=== PATIENT | male | born 1940 | race Caucasian/White ===

== ENCOUNTER 2022-11-15 08:51 | Inpatient (IN) ==
--- NOTE | 2022-10-26 14:33 | PAT Medication Instructions ---
Medication Instructions Date of Service October 26, 2022 Home Medications atorvastatin 40 mg tablet 40 mg PO QPM metformin 500 mg tablet,extended release 24hr 1,000 mg PO BID aspirin 81 mg tablet 81 mg PO QAM clopidogrel 75 mg tablet (Plavix) 75 mg PO QAM lisinopril 20 mg-hydrochlorothiazide 12.5 mg tablet 1 tab PO QAM loratadine 10 mg tablet (Claritin) 10 mg PO DAILY PRN Allergy Symptoms multivitamin 1 tab PO QAM ASK your prescriber and surgeon aspirin 81 mg tablet 81 mg PO QAM clopidogrel 75 mg tablet (Plavix) 75 mg PO QAM DO NOT take the morning of surgery metformin 500 mg tablet,extended release 24hr 1,000 mg PO BID lisinopril 20 mg-hydrochlorothiazide 12.5 mg tablet 1 tab PO QAM loratadine 10 mg tablet (Claritin) 10 mg PO DAILY PRN Allergy Symptoms multivitamin 1 tab PO QAM Take evening before surgery atorvastatin 40 mg tablet 40 mg PO QPM metformin 500 mg tablet,extended release 24hr 1,000 mg PO BID loratadine 10 mg tablet (Claritin) 10 mg PO DAILY PRN Allergy Symptoms (if needed) OTHERWISE NOTHING TO EAT OR DRINK AFTER MIDNIGHT Other Notes If you have any questions please call us at [phone] or [phone] or [phone] or [phone]
--- NOTE | 2022-11-02 09:09 | Anesthesiology Consultation ---
Date of Service November 02, 2022 Assessment & Plan (1) Encounter for pre-operative examination: - Check BSG AM DOS - COVID screening: Per assessment on 11/02: No known COVID-19 positive contacts or current COVID-19 related symptoms. Travel screen negative. Patient vaccinated. At surgeon discretion if preop Covid testing being done. - Plavix/ASA instructions: Per surgeon/prescriber (per patient, advised by surgeon to continue perioperatively) Chart Review Chart Review: Acceptable Risk for Surgery (pending evaluation AM DOS) and Patient seen in Pre Admission Testing Teaching & Discussion Pre-Anesthesia Teaching/Discussion Notes: Instructed NPO after midnight before surgery,except medications with 15 cc of water. Medication instructions provided according to the PAT guidelines. History Surgery Operation Date: 11/15/22 09:50 Proposed Procedures p Left Transcarotid Artery Revascularization - Cuate Cuba MD Height/Weight Height: 5 ft 10 in Weight: 85.9 kg Allergies Allergy/AdvReac Type Severity Reaction Status Date / Time No Known Allergies Allergy Verified 10/26/22 08:45 Medications Home Medications Medication Instructions Recorded Confirmed Last Taken atorvastatin 40 mg tablet 40 mg PO QPM 03/13/22 10/26/22 Unknown metformin 500 mg tablet,extended 1,000 mg PO BID 03/13/22 10/26/22 Unknown release 24hr aspirin 81 mg tablet 81 mg PO QAM 10/26/22 10/26/22 Unknown clopidogrel 75 mg tablet (Plavix) 75 mg PO QAM 10/26/22 10/26/22 Unknown lisinopril 20 1 tab PO QAM 10/26/22 10/26/22 Unknown mg-hydrochlorothiazide 12.5 mg tablet loratadine 10 mg tablet (Claritin) 10 mg PO DAILY PRN Allergy Symptoms 10/26/22 10/26/22 Unknown multivitamin 1 tab PO QAM 10/26/22 10/26/22 Unknown Past Medical History Medical History Carotid artery stenosis Diabetes History of prostate cancer 2001- radiation seed implant History of shingles History of skin cancer HTN (hypertension) Hyperlipidemia Snoring Evaluated by sleep medicine, possible disordered breathing, sleep study discussed/not done Exercise / Class Metabolic Activity II 4-5 Yardwork/Stairs/Walk up hill Past Family History Family History Father Prostate cancer Past Surgical History Surgical History Hx of colonoscopy Hx of hernia repair Hx of removal of cyst lipoma from neck Status post Mohs surgery 2008, 2010, 2020 Past Anesthesia History No Hx of Anesthesia Complications and No Family Hx of Anesthesia Complications History of PONV No Hx of PONV and No Hx of Motion Sickness Social History Smoking Status: Former smoker tobacco type: cigars Smoking cigarettes per day: Quit 1984 Do You Dip or Chew Tobacco: No Hx Alcohol Use: Yes Alcohol type: beer alcohol intake frequency: a few times a week Hx Substance Use: No substance use type: does not use Review of Systems Patient denies chest pain, shortness of breath, dyspnea on exertion, fever, chills, cough, wheezing, palpitations. Physical Exam Vital Signs VITALS BP 184/77 (BP monitored closely, recent systolic readings in the 120s-140s per patient) P 66 TEMP 98.4 SP02 98%RA RESP 18 PHYSICAL Full cervical extension range of motion. Full TMJ range of motion. TMD 3 finger breaths Mallampati Score 2 Dentition: partial upper/lower Lungs: clear throughout to auscultation Cardiac: regular rate and rhythm, no murmurs noted Spine: normal Carotid arteries: negative bruit Extremities: no LE edema Lab Results Anesthesia Preop Results Results Anesthesia Widget: WBC 6.08 K/ul (4.8-10.8) 10/30/22 Hgb 14.7 g/dl (14.0-18.0) 10/30/22 Hct 43.2 % (42.0-52.0) 10/30/22 Plt 235 K/uL (130-400) 10/30/22 Na 140 mmol/L (136-145) 10/30/22 K 4.5 mmol/L (3.5-5.1) 10/30/22 Cl 99 mmol/L (98-107) 10/30/22 CO2 31 mmol/L (21-32) 10/30/22 BUN 20 mg/dl (6-23) 10/30/22 Creat 0.94 mg/dl (0.6-1.4) 10/30/22 Glucose Level 149 mg/dl (70-99(Fasting)) H 10/30/22 PT 11.5 Seconds (9.0-12.0) 10/30/22 PTT 26.7 Seconds (21.0-31.0) 11/02/22 INR 1.1 (0.9-1.1) 10/30/22 HA1c 6.9 % (4.5-5.6) H 11/02/22 Blood Type A Positive 11/02/22 Antibody Screen NEGATIVE 11/02/22 Testing Electrocardiogram Date: 11/02/22 NSR at 64bpm. RBBB. LAFB. *Bifascicular block* No comparison EKGs available. Case/EKG reviewed with Dr. Miranda- he does not feel that further cardiac evaluation and/or testing needed prior to given surgery from his perspective Chest X-Ray Date: 11/02/22 FINDINGS: The lungs are clear. Cardiac silhouette is normal in size. No pleural effusions. No pneumothorax. Calcifications within the aortic knob. Small surgical clip at the left lung base. IMPRESSION: No acute process. Other Testing Neck CTA (10/20/22) There is critical stenosis versus focal occlusion at the takeoff of the left internal carotid artery with only a trickle of flow identified at this location. The remaining cervical and intracranial left internal carotid artery is diffusely small in caliber/narrowed throughout its course. This could be due to retrograde flow of contrast, chronic high-grade stenosis, or possibly a chronic dissection. COVID-19 Risk Screen Screening Information COVID-19 Screen Date: 11/02/22 Exposure 21 Days Family/Household +COVID Last 21 Days: No Exposure 10 Days Any COVID Exposure Last 10 Days: No Symptoms Last 10 Days Experienced COVID Sx Last 10 Days: No + COVID 0-90 Days COVID + in Last 0-90 Days: No
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
[~2022-11-15 08:51] MED LIST: LACTATED RINGER'S 1,000 ML IV SCH; ceFAZolin 2000MG 2,000 MG/15 ML SYR IV SCH
[2022-11-15] MEDS ORDERED: HEPARIN SOD (PORCINE) 1000 UNIT/ML ONE (09:16)
[2022-11-15] MEDS ORDERED: fentaNYL citrate PF 100 MCG/2 ML VIAL ONE ×2 (09:16→11:21)
[2022-11-15] MEDS ORDERED: PHENYLEPHRINE HCL 25 MG/250 ML NSS IV ONE (09:16)
[2022-11-15] MEDS ORDERED: ROCURONIUM BROMIDE 10 MG/ML 5 ML VIAL IV ONE (09:16)
[2022-11-15] MEDS ORDERED: DEXAMETHASONE SOD INJ 4 MG/ML VIAL ONE (09:16)
[2022-11-15] MEDS ORDERED: PROPOFOL IV EMULSION 10 MG/ML 20 ML VIAL IV ONE (09:16)
[2022-11-15] MEDS ORDERED: GLYCOPYRROLATE 0.2 MG/ML VIAL ONE (09:54)
[2022-11-15] MEDS ORDERED: GELATIN SPONGE SZ 100 ONE (10:08)
[2022-11-15] MEDS ORDERED: ceFAZolin 330 MG/ML 1 GM VIAL ONE (10:08)
[2022-11-15] MEDS ORDERED: BUPIVACAINE/EPINEPHRINE 0.5% MPF 1:200,000 30 ML VIAL ONE (10:08)
[2022-11-15] MEDS ORDERED: THROMBIN FOR SOLN 20000 UNIT KIT ONE (10:09)
--- NOTE | 2022-11-15 10:32 | History & Physical Bridge Note ---
Date of Service November 15, 2022 History & Physical Bridge Note I have examined the patient, reviewed the History & Physical and in the interval since the performance of the History & Physical I have noted the following changes of clinical significance: no changes noted
[2022-11-15] MEDS ORDERED: LABETALOL HCL IV 5 MG/ML 20ML IV ONE (11:22)
[2022-11-15] MEDS ORDERED: ONDANSETRON INJ 2 MG/ML 2 ML VIAL ONE (11:23)
[2022-11-15] MEDS ORDERED: SUGAMMADEX SODIUM 200 MG/2 ML VIAL IV ONE (11:24)
[2022-11-15] MEDS ORDERED: PROTAMINE SULFATE 10 MG/ML 5 ML VIAL IV ONE (11:52)
[2022-11-15] MEDS ORDERED: PHENYLEPHRINE HCL 10 MG/ML VIAL ONE (12:00)
[2022-11-15] MEDS ORDERED: ePHEDrine sulfate 50 MG/ML AMP ONE (12:00)
[2022-11-15] MEDS ORDERED: SURGICEL ABSORB HEMOSTAT 2IN X 14IN TOP ONE (12:08)
[2022-11-15] MEDS ORDERED: ARISTA ABSORBABLE HEMOSTAT 3GM TOP ONE (12:09)
[2022-11-15] MEDS ORDERED: NALOXONE HCL 0.4 MG/1 ML VIAL/CARP IV PRN (12:17)
[2022-11-15] MEDS ORDERED: ATROPINE SULFATE 0.1 MG/ML 10ML SYR IV PRN (12:17)
[2022-11-15] MEDS ORDERED: ePHEDrine sulfate 50 MG/ML AMP IV PRN (12:17)
[2022-11-15] MEDS ORDERED: fentaNYL citrate PF 100 MCG/2 ML VIAL IV PRN (12:17)
[2022-11-15] MEDS ORDERED: LABETALOL HCL IV 5 MG/ML 20ML IV PRN (12:17)
[2022-11-15] MEDS ORDERED: ONDANSETRON INJ 2 MG/ML 2 ML VIAL IV PRN (12:17)
[2022-11-15] MEDS ORDERED: FLUMAZENIL 0.1 MG/1 ML 10 ML VIAL IV PRN (12:17)
[2022-11-15] MEDS ORDERED: PROMETHAZINE HCL 12.5 MG in SODIUM CHLORIDE 0.9% 50 ML IV PRN (12:17)
--- NOTE | 2022-11-15 12:29 | Procedure Note ---
Angiogram Post Procedure Fluoroscopy Time (minutes): 3.4 Radiation (mGy): 45 Contrast: 15 Post Operative Report Pre & Post Diagnosis Operation Date: 11/15/22 10:50 Pre-Op Diagnosis: Left Internal Carotid Artery Stenosis Post-Op Diagnosis: Left Internal Carotid Artery Stenosis I identified the patient and participated in the time-out.: Yes Procedure Operation Date: 11/15/22 10:50 Actual Procedures p Left Transcarotid Artery Revascularization, Ultrasound of the Right Common Femoral Vein(Left) - Cuate Cuba MD Surgeon Cuate Cuba MD Inspector Hairspring Truing Nathalie,PAC Estimated Blood Loss 30 Findings Consistent with Post-Op Diagnosis Specimens none Anesthesia Type General Complications none Disposition Accompanied Patient To Recovery: No Disposition: Recovery Room Indications This is a 82-year-old male with preocclusive stenosis of his left internal carotid artery. Endarterectomy versus TCAR was recommended. We went over the risks options and benefits and he agreed to go ahead with a TCAR procedure. I have discussed the risks options and benefits of the procedure with the patient. The patient understands the risks options and benefits and agrees to the procedure. Description of Procedure The patient was taken to the operating room and placed in supine position. After general anesthesia was accomplished the groins and left side of the neck and chest were prepped and draped in a sterile manner. Timeout was performed and the patient was identified. A transverse incision was made just above the clavicle between the heads of the sternocleidomastoid. This was carried down to where the common carotid artery was identified. It was isolated and slung with an umbilical tape. U stitch of 5-0 Prolene was placed on the common carotid artery anteriorly. It was given 9000units of heparin at that time. Ultrasound was then used to localize the right common femoral vein. The vein was patent and compressed easily. Under ultrasound guidance the right common femoral vein was punctured and the venous sheath was inserted. This was aspirated and flushed with heparinized saline. An ACT at that time was 275. Using micropuncture technique the common carotid artery was punctured. The micro sheath was inserted to 3 cm. Injection was then done showing the bifurcation. There was a significant preocclusive lesion seen at the origin of the internal carotid artery on the right side. We then inserted the J-wire and kept it short of the bifurcation of the carotid artery. The TCAR sheath was inserted. Once it was in place and held against the artery it was sutured to the chest wall and the incision edge. We then flushed the tubing appropriately. The venous return tubing was clamped onto the TCAR sheath. It was flushed through and then attached to the venous inflow sheath in the left groin. The sheath was checked for flow. The proximal common carotid was now clamped. The venous sheath was again checked for flow. Good flow was noted. We then inserted a Kumpe catheter backloaded on the 014 wire. The wire was passed through the lesion into the petrous portion of the internal carotid. The 4 x 35 balloon was then advanced to the lesion. The lesion was then predilated with the 4 mm balloon. The balloon was removed. We then inserted the 8 x 40 stent. This was deployed across the lesion without difficulty. The catheter was removed. Due to the significant narrowing we decided to post dilate the stent with a 5 x 40 balloon. Once this was done the balloon was removed. The carotid was allowed to go 2 minutes with flow reversal. Completion angiogram was done at that time which showed a mild residual stenosis. Again after the angio was done and the wire was removed we allowed 2 minutes of flow reversal to occur. A that point the common carotid artery was unclamped. The venous return tubing was clamped and removed from the TCAR sheath. The blood was allowed to flow back into the venous system. Once this was completed the sheath was pulled from the groin and pressure was applied. The TCAR sheath was then removed and the 5-0 Prolene suture securely tied. Hemostasis was noted of the puncture site. Wound was irrigated with Ancef solution. Adequate hemostasis was obtained of the wound. Once this was noted the wound was closed in usual fashion using a 3-0 Vicryl suture for the subcutaneous layer and a 4-0 subcuticular Vicryl suture for the skin edges. Dermabond was used for dressing.The patient left the operation room in satisfactory condition and tolerated the procedure well. All needle and sponge counts were correct at the end of the procedure. Brianna Coppola Pac assisted due to lack of resident availability and was necessary for positioning, draping, retraction, wound closure deep layers, subcutaneous tissue, and skin closure and was necessary for assisting with the case. I attest to the content of the Intraoperative Record and any orders documented therein. Any exceptions are noted below.
[2022-11-15] MEDS ORDERED: LORATADINE 10 MG TAB PO PRN (13:40)
--- NOTE | 2022-11-15 13:59 | Anesthesiology Progress Note ---
Date of Service November 15, 2022 Anesthesia Post Procedure Vital Signs Vital Signs: Temp Pulse Resp BP BP BP Pulse Ox 11/15/22 13:45 74 21 183/68 H 154/76 H 98 11/15/22 13:30 76 18 168/58 H 162/83 H 96 11/15/22 13:23 36.5 C 73 16 164/82 H 95 11/15/22 13:10 73 16 147/84 H 169/61 H 96 11/15/22 13:00 36.1 C L 75 16 155/83 H 170/62 H 96 11/15/22 12:50 73 16 153/52 H 173/64 H 97 11/15/22 12:40 73 16 155/78 H 174/60 H 96 11/15/22 12:30 78 16 167/85 H 177/63 H 96 11/15/22 12:20 79 16 173/80 H 187/69 H 99 11/15/22 12:19 36.4 C L 80 16 187/67 H 179/90 H 99 11/15/22 09:35 36.5 C 85 18 214/95 H 224/101 H 98 O2 Del Method O2 Flow Rate 11/15/22 13:45 Room Air 11/15/22 13:30 Room Air 11/15/22 13:23 Room Air 11/15/22 13:10 Room Air 11/15/22 13:00 Room Air 11/15/22 12:50 Room Air 11/15/22 12:40 Room Air 11/15/22 12:30 Room Air 11/15/22 12:20 Oxymask 6 11/15/22 12:19 Oxymask 6 11/15/22 09:35 Room Air Transfer of Care Handoff Completed per policy Notes Mental Status: alert / awake / arousable Patient Amnestic to Procedure: Yes Nausea / Vomiting: adequately controlled Pain: adequately controlled Airway Patency, RR, SpO2: stable & adequate BP & HR: stable & adequate Hydration State: stable & adequate Anesthetic Complications: no major complications apparent
[2022-11-15] MEDS: NITROPRUSSIDE SODIUM 50 MG in DEXTROSE 5% 500 ML IV SCH (16:08)
[2022-11-15] MEDS: LACTATED RINGER'S 1,000 ML IV SCH ×2 (16:08→21:27)
--- NOTE | 2022-11-15 16:35 | Critical Care Consultation ---
Date of Consultation November 15, 2022 Assessment & Plan (1) Hypertension: Requiring nitroglycerin infusion for BP control status post trans carotid stenting (2) High cholesterol: Continue statin (3) Hematoma: Small hematoma of the neck near the surgical site. No evidence of expansion, no complaints affecting swallowing continued observation History of Present Illness Reason for Consultation: Postop transcarotid artery revascularization Attending Physician: Cuate Cuba MD History of Present Illness Patient is an 82-year-old male who underwent left internal carotid artery revascularization Allergies Allergy/AdvReac Type Severity Reaction Status Date / Time No Known Allergies Allergy Verified 11/15/22 09:14 Home Medications Medication Instructions Recorded Confirmed Type atorvastatin 40 mg tablet 40 mg PO QPM 03/13/22 11/15/22 History metformin 500 mg tablet,extended 1,000 mg PO BID 03/13/22 11/15/22 History release 24hr aspirin 81 mg tablet 81 mg PO QAM 10/26/22 11/15/22 History clopidogrel 75 mg tablet (Plavix) 75 mg PO QAM 10/26/22 11/15/22 History lisinopril 20 1 tab PO QAM 10/26/22 11/15/22 History mg-hydrochlorothiazide 12.5 mg tablet loratadine 10 mg tablet (Claritin) 10 mg PO DAILY PRN Allergy Symptoms 10/26/22 11/15/22 History multivitamin 1 tab PO QAM 10/26/22 11/15/22 History Patient History Medical History Carotid artery stenosis Diabetes History of prostate cancer 2001- radiation seed implant History of shingles History of skin cancer HTN (hypertension) Hyperlipidemia Snoring Evaluated by sleep medicine, possible disordered breathing, sleep study discussed/not done Surgical History Hx of colonoscopy Hx of hernia repair Hx of removal of cyst lipoma from neck Status post Mohs surgery 2008, 2010, 2020 Family History Father Prostate cancer Social History Smoking Status: Former smoker Tobacco Type: Cigars Cigarettes Per Day: Quit 1983; Second Hand Exposure: No; Do You Dip or Chew Tobacco: No; Tobacco Cessation Education Requested by Patient: No Hx Alcohol Use: Yes Alcohol type: beer Alcohol Intake Frequency: 2-3 x/Week Hx Substance Use: No Preferred Language: Uzbek Communication Ability: Effective Yarn Wrapper Required: No Beliefs That Will Affect Care: None Current Living Situation: Alone current occupational status: retired Other Information That Helps Us Care for You: No Feels Safe at Home: Yes Safety Concerns: Feels Safe At This Time caffeine: Yes Sunscreen Use: Yes Assistive Devices: Denture - Upper, Denture - Lower and Glasses Review of Systems Review of Systems: Generally sore, no chest pain no shortness of breath, no difficulty swallowing Physical Exam Physical Exam: General: Alert. nontoxic. Skin: Warm, dry, left neck incision clean dry intact, approximately 4 cm x 2 cm swelling under the left neck incision. No pulsatility, not expanding, Head: Atraumatic Ears, nose, mouth and throat: airway patent Cardiovascular: Normal peripheral perfusion Respiratory: no respiratory distress Gastrointestinal: Non distended Musculoskeletal: No deformity Results & Data Results & Data Vital Signs (Past 12 Hours) Vital Signs Temp Pulse Resp BP BP BP Pulse Ox 11/15/22 13:45 74 21 183/68 H 154/76 H 98 11/15/22 13:30 76 18 168/58 H 162/83 H 96 11/15/22 13:23 36.5 C 73 16 164/82 H 95 11/15/22 13:10 73 16 147/84 H 169/61 H 96 11/15/22 13:00 36.1 C L 75 16 155/83 H 170/62 H 96 11/15/22 12:50 73 16 153/52 H 173/64 H 97 11/15/22 12:40 73 16 155/78 H 174/60 H 96 11/15/22 12:30 78 16 167/85 H 177/63 H 96 11/15/22 12:20 79 16 173/80 H 187/69 H 99 11/15/22 12:19 36.4 C L 80 16 187/67 H 179/90 H 99 11/15/22 09:35 36.5 C 85 18 214/95 H 224/101 H 98 O2 Del Method O2 Flow Rate 11/15/22 13:45 Room Air 11/15/22 13:30 Room Air 11/15/22 13:23 Room Air 11/15/22 13:10 Room Air 11/15/22 13:00 Room Air 11/15/22 12:50 Room Air 11/15/22 12:40 Room Air 11/15/22 12:30 Room Air 11/15/22 12:20 Oxymask 6 11/15/22 12:19 Oxymask 6 11/15/22 09:35 Room Air Critical Care Results & Data Vital Signs (Past 12 Hours) Vital Signs Temp Pulse Resp BP BP BP Pulse Ox 11/15/22 13:45 74 21 183/68 H 154/76 H 98 11/15/22 13:30 76 18 168/58 H 162/83 H 96 11/15/22 13:23 36.5 C 73 16 164/82 H 95 11/15/22 13:10 73 16 147/84 H 169/61 H 96 11/15/22 13:00 36.1 C L 75 16 155/83 H 170/62 H 96 11/15/22 12:50 73 16 153/52 H 173/64 H 97 11/15/22 12:40 73 16 155/78 H 174/60 H 96 11/15/22 12:30 78 16 167/85 H 177/63 H 96 11/15/22 12:20 79 16 173/80 H 187/69 H 99 11/15/22 12:19 36.4 C L 80 16 187/67 H 179/90 H 99 11/15/22 09:35 36.5 C 85 18 214/95 H 224/101 H 98 O2 Del Method O2 Flow Rate 11/15/22 13:45 Room Air 11/15/22 13:30 Room Air 11/15/22 13:23 Room Air 11/15/22 13:10 Room Air 11/15/22 13:00 Room Air 11/15/22 12:50 Room Air 11/15/22 12:40 Room Air 11/15/22 12:30 Room Air 11/15/22 12:20 Oxymask 6 11/15/22 12:19 Oxymask 6 11/15/22 09:35 Room Air Lab & Micro Results (Past 24 Hours) No Data to Display No Data to Display No Data to Display I & O Totals 24 Hours 11/14/22 11/15/22 11/16/22 06:59 06:59 06:59 Intake Total 1100 / 1100 Output Total 55 / 55 Balance 1045 / 1045 Cumulative 10/25/22 09:23 thru 11/15/22 16:24 Intake Total 1100 Output Total 55 Balance 1045 RT Ventilator Mngmt (Last Documented) Ventilator Ordered Settings Respiratory Rate 21 11/15/22 13:45 Ventilator - PT Measurements Respiratory Rate 21 Coding Level of Care Code 48947 IN/OBS CONSULT LVL 2,35M Diagnoses Hypertension I10 High cholesterol E78.00 Hematoma T14.8XXA
[2022-11-15] MEDS ORDERED: PNEUMOCOCCAL Polysaccharide Vaccine 25mcg/0.5mL vial/Syr IM ONE (17:00)
[2022-11-15] MEDS: ceFAZolin 2000MG 2,000 MG/15 ML SYR IV SCH (19:32)
[2022-11-15] MEDS: ATORVASTATIN 40 MG TAB PO SCH (20:17)
[2022-11-16] MEDS: ceFAZolin 2000MG 2,000 MG/15 ML SYR IV SCH (02:47)
[2022-11-16] MEDS: LACTATED RINGER'S 1,000 ML IV SCH (04:29)
[2022-11-16] MEDS: MULTIVITAMIN TAB PO SCH (08:44)
[2022-11-16] MEDS: CLOPIDOGREL BISULFATE 75 MG TAB PO SCH (08:44)
[2022-11-16] MEDS: ASPIRIN 81 MG ECTAB PO SCH (08:47)
[2022-11-16] MEDS: LISINOPRIL/HCTZ 20/12.5MG 1 TAB TAB PO SCH (08:47)
[2022-11-16] MEDS ORDERED: Nursing to Pharmacy Communication SCH (13:15)
--- NOTE | 2022-11-16 14:13 | Surgery Progress Note ---
Date of Service November 16, 2022 Assessment & Plan (1) Internal carotid artery stent present: Plan: This gentleman is postoperative day 1 from a TCAR. He is doing well without any neurological deficits. (2) Hypertension: Plan: He is hypertensive requiring night pride at this point. We will consult hospitalist for blood pressure management. Admission and Anticipated Discharge Date Admission Date: November 15, 2022 Subjective Patient is feeling good. He has no complaints of focal deficits. Physical Exam Constitutional: WD/WN, vitals as above Hypertensive on night. Neck: trachea midline Cardiovascular: Rate/Rhythm: regular rate and regular rhythm Extremities: normal capillary refill Gastrointestinal (Abdomen): Inspection/Auscultation: abdomen normal to inspection Skin: + incision (Slight swelling around the incision. Incision is soft to palpation.) Neurologic: CN's II-XI intact bilaterally and moves all extremities Psychiatric: Orientation: alert and oriented x 3 Results & Data Vital Signs (Past 12 Hours) Vital Signs Temp Pulse Resp BP BP Pulse Ox O2 Del Method 11/16/22 13:59 215/82 H 11/16/22 13:39 210/77 H 11/16/22 13:32 164/93 H 11/16/22 13:15 78 20 147/121 H 99 11/16/22 12:30 77 19 100 11/16/22 12:00 83 19 132/86 72 L 11/16/22 11:00 75 20 158/74 H 97 11/16/22 10:15 83 24 137/74 96 11/16/22 12:00 76 131/76 11/16/22 10:00 76 20 131/76 95 Room Air 11/16/22 09:45 98/62 L 11/16/22 09:05 83/51 L 11/16/22 09:00 98 H 18 120/67 92 11/16/22 08:30 166/88 H 11/16/22 08:00 101 H 12 150/78 H 91 11/16/22 08:00 86 11/16/22 08:00 86 11/16/22 07:30 86 14 93 11/16/22 07:00 85 18 165/88 H 96 Room Air 11/16/22 07:45 210/80 H 11/16/22 07:25 76 144/47 H 11/16/22 07:25 81 11/16/22 06:20 76 9 L 98 11/16/22 06:15 72 13 98 11/16/22 06:15 157/76 H 11/16/22 06:10 79 17 98 11/16/22 06:00 69 10 L 97 11/16/22 06:00 146/70 H 11/16/22 05:50 71 5 L 97 11/16/22 05:45 158/76 H 11/16/22 05:45 82 13 97 11/16/22 05:40 67 15 97 11/16/22 05:30 66 14 97 11/16/22 05:30 141/64 H 11/16/22 05:20 70 7 L 97 11/16/22 05:15 155/70 H 11/16/22 05:15 73 17 96 11/16/22 05:10 73 17 96 11/16/22 05:00 70 7 L 96 11/16/22 05:00 136/66 11/16/22 04:50 71 14 96 11/16/22 04:45 161/73 H 11/16/22 04:45 74 15 97 11/16/22 04:40 72 10 L 88 L 11/16/22 04:30 142/72 H 11/16/22 04:30 72 17 93 11/16/22 04:28 74 16 94 11/16/22 04:26 80 20 90 11/16/22 04:24 77 18 94 11/16/22 04:22 73 19 93 11/16/22 04:20 76 19 93 11/16/22 04:18 71 18 94 11/16/22 04:16 74 17 93 11/16/22 04:15 74 17 94 11/16/22 04:15 152/75 H 11/16/22 04:00 36.8 C 11/16/22 03:45 78 17 95 11/16/22 03:45 161/79 H 11/16/22 03:30 70 8 L 92 11/16/22 03:30 134/98 11/16/22 03:15 72 19 96 11/16/22 03:15 144/72 H 11/16/22 03:00 68 13 94 11/16/22 03:00 122/60 11/16/22 02:45 123/69 11/16/22 02:45 71 13 95 11/16/22 02:30 67 16 92 11/16/22 02:30 120/56 L 11/16/22 02:15 118/61 11/16/22 02:15 67 9 L 95
[2022-11-16] MEDS: NITROPRUSSIDE SODIUM 50 MG in DEXTROSE 5% 500 ML IV SCH (14:26)
--- NOTE | 2022-11-16 14:36 | Hospitalist Consultation ---
Date of Consultation November 16, 2022 Assessment & Plan (1) Internal carotid artery stent present: Status post left TCAR on 11/15 Postoperative management as per vascular surgery Continue aspirin, Plavix, atorvastatin, blood pressure control as below Pain control with Percocet (2) Hypertension: Blood pressures significantly elevated, with hypertensive urgency A-line is a little discordant with blood pressure cuff, but with good [id number] reading at x30 points higher systolic Patient is asymptomatic He has a long history of hypertension and was noted to have uncontrolled hypertension at a visit with Dr. Bee of sleep/pulmonary medicine back in the fall. Was recommended to have sleep study at that time but has not had it done yet. Has been on nitroprusside drip since yesterday-continues with elevated blood pressures Telemetry with sinus rhythm and first-degree AV block -Continue home lisinopril/HCTZ -Start amlodipine 5 mg daily, first dose now -Wean off nitroprusside (3) Type 2 diabetes mellitus: Hemoglobin A1c well controlled at 6.9% in 10/2022 Takes metformin at home-on hold here Add on glucose checks before meals and at bedtime, supplemental NovoLog with meals and at bedtime (4) Snoring: Encourage patient to have sleep study as ordered by sleep medicine back in the fall May be contributing to uncontrolled high blood pressure (5) High cholesterol: Continue atorvastatin 40 mg daily (6) Prostate cancer: Follows with urology No acute issues, voiding on his own Plan DVT prophylaxis-on aspirin and Plavix, SCDs in place Arterial line to remain in place until weaned off nitroprusside drip Disposition-continued stay. He is in the ICU, but vascular surgery as the attending and hospitalist service will continue to follow along daily for blood pressure management. I discussed his care with the vascular surgeon attending and the toll test worker History of Present Illness Reason for Consultation: Blood pressure control, on nipride Requesting Physician: Dr. Cuba Attending Physician: Cuate Cuba MD History of Present Illness This patient is an 82-year-old male with a history of DM2, HTN, prostate cancer, hyperlipidemia, possible sleep apnea, and carotid artery stenosis who is admitted to the ICU after having left internal carotid TCAR on 11/15. He has an A-line in place and has been on nitroprusside since yesterday, with ongoing elevated blood pressures as high as 215/82. Patient denies any chest pains or shortness of breath. He does have a mild sore throat from intubation. No lightheadedness. No headache. He moved his bowels today and is eating. He is voiding without difficulty. Telemetry with sinus rhythm with first-degree AV block. Allergies Allergy/AdvReac Type Severity Reaction Status Date / Time No Known Allergies Allergy Verified 11/15/22 09:14 Home Medications Medication Instructions Recorded Confirmed Type atorvastatin 40 mg tablet 40 mg PO QPM 03/13/22 11/15/22 History metformin 500 mg tablet,extended 1,000 mg PO BID 03/13/22 11/15/22 History release 24hr aspirin 81 mg tablet 81 mg PO QAM 10/26/22 11/15/22 History clopidogrel 75 mg tablet (Plavix) 75 mg PO QAM 10/26/22 11/15/22 History lisinopril 20 1 tab PO QAM 10/26/22 11/15/22 History mg-hydrochlorothiazide 12.5 mg tablet loratadine 10 mg tablet (Claritin) 10 mg PO DAILY PRN Allergy Symptoms 10/26/22 11/15/22 History multivitamin 1 tab PO QAM 10/26/22 11/15/22 History Patient History Medical History Carotid artery stenosis Diabetes History of prostate cancer 2001- radiation seed implant History of shingles History of skin cancer HTN (hypertension) Hyperlipidemia Snoring Evaluated by sleep medicine, possible disordered breathing, sleep study discussed/not done Surgical History Hx of colonoscopy Hx of hernia repair Hx of removal of cyst lipoma from neck Status post Mohs surgery 2008, 2010, 2020 Family History Father Prostate cancer Social History Smoking Status: Former smoker Tobacco Type: Cigars Cigarettes Per Day: Quit 1983; Second Hand Exposure: No; Do You Dip or Chew Tobacco: No; Tobacco Cessation Education Requested by Patient: No Hx Alcohol Use: Yes Alcohol type: beer Alcohol Intake Frequency: 2-3 x/Week Hx Substance Use: No Preferred Language: Sami Communication Ability: Effective Press Operator Helper Required: No Beliefs That Will Affect Care: None Current Living Situation: Alone current occupational status: retired Other Information That Helps Us Care for You: No Feels Safe at Home: Yes Safety Concerns: Feels Safe At This Time caffeine: Yes Sunscreen Use: Yes Assistive Devices: None Review of Systems Review of Systems: All systems reviewed & are unremarkable except as noted in HPI & below Physical Exam Constitutional: WD/WN, vitals as above Eyes: PERRL, conjunctivae normal, anicteric sclerae ENMT: external ear and nose normal, oropharynx normal Neck: + abnormal visual inspection (Incisional wound anterior neck left side CDI, minimal swelling) Respiratory: normal respiratory effort, lungs clear to auscultation Cardiovascular: RRR, no murmur, no edema Vessels: dorsalis pedis pulses present Left wrist A-line in place radial artery Right groin site with dressing in place clean dry and intact, no hematoma Chest (Breasts): Chest: normal inspection of chest Gastrointestinal (Abdomen): normal bowel sounds, soft, nontender, no hepatosplenomegaly Musculoskeletal: Extremities: extremities normal to inspection; no cyanosis and no clubbing Skin: no rashes, warm and dry Neurologic: moves all extremities and awake; no focal motor deficits Psychiatric: A+Ox3, euthymic affect Lymphatic: no lymphedema Results & Data Results & Data Vital Signs (Past 12 Hours) Vital Signs Temp Pulse Resp BP BP Pulse Ox O2 Del Method 11/16/22 14:28 214/74 H 11/16/22 13:59 215/82 H 11/16/22 13:39 210/77 H 11/16/22 13:32 164/93 H 11/16/22 13:15 78 20 147/121 H 99 11/16/22 12:30 77 19 100 11/16/22 12:00 83 19 132/86 72 L 11/16/22 11:00 75 20 158/74 H 97 11/16/22 10:15 83 24 137/74 96 11/16/22 12:00 76 131/76 11/16/22 10:00 76 20 131/76 95 Room Air 11/16/22 09:45 98/62 L 11/16/22 09:05 83/51 L 11/16/22 09:00 98 H 18 120/67 92 11/16/22 08:30 166/88 H 11/16/22 08:00 101 H 12 150/78 H 91 11/16/22 08:00 86 11/16/22 08:00 86 11/16/22 07:30 86 14 93 11/16/22 07:00 85 18 165/88 H 96 Room Air 11/16/22 07:45 210/80 H 11/16/22 07:25 76 144/47 H 11/16/22 07:25 81 11/16/22 06:20 76 9 L 98 11/16/22 06:15 72 13 98 11/16/22 06:15 157/76 H 11/16/22 06:10 79 17 98 11/16/22 06:00 69 10 L 97 11/16/22 06:00 146/70 H 11/16/22 05:50 71 5 L 97 11/16/22 05:45 158/76 H 11/16/22 05:45 82 13 97 11/16/22 05:40 67 15 97 11/16/22 05:30 66 14 97 11/16/22 05:30 141/64 H 11/16/22 05:20 70 7 L 97 11/16/22 05:15 155/70 H 11/16/22 05:15 73 17 96 11/16/22 05:10 73 17 96 11/16/22 05:00 70 7 L 96 11/16/22 05:00 136/66 11/16/22 04:50 71 14 96 11/16/22 04:45 161/73 H 11/16/22 04:45 74 15 97 11/16/22 04:40 72 10 L 88 L 11/16/22 04:30 142/72 H 11/16/22 04:30 72 17 93 11/16/22 04:28 74 16 94 11/16/22 04:26 80 20 90 11/16/22 04:24 77 18 94 11/16/22 04:22 73 19 93 11/16/22 04:20 76 19 93 11/16/22 04:18 71 18 94 11/16/22 04:16 74 17 93 11/16/22 04:15 74 17 94 11/16/22 04:15 152/75 H 11/16/22 04:00 36.8 C 11/16/22 03:45 78 17 95 11/16/22 03:45 161/79 H 11/16/22 03:30 70 8 L 92 11/16/22 03:30 134/98 11/16/22 03:15 72 19 96 11/16/22 03:15 144/72 H 11/16/22 03:00 68 13 94 11/16/22 03:00 122/60 11/16/22 02:45 123/69 11/16/22 02:45 71 13 95 Laboratory Results No labs to review PG Care Time/CCT Total # of Minutes Spent Total Time Spent with Patient: Total time spent is greater than 50% in coordination of care (as documented) at patient's floor/unit and/or counseling patient: Coding Level of Care Code 31148 IN/OBS CONSULT LVL 3,45M Diagnoses Internal carotid artery stent present Z95.828 Hypertension I10 Type 2 diabetes mellitus E11.9 Snoring R06.83 High cholesterol E78.00 Prostate cancer C61
[2022-11-16] MEDS: amLODIPine BESYLATE 5 MG TAB PO SCH (16:39)
[2022-11-16] MEDS ORDERED: GLUCOSE 10 TAB/TUBE PO PRN (16:45)
[2022-11-16] MEDS ORDERED: GLUCAGON FOR INJ 1 MG VIAL SQ PRN (16:45)
[2022-11-16] MEDS ORDERED: CARBOHYDRATES FOR HYPOGLYCEMIA PO PRN (16:45)
[2022-11-16] MEDS ORDERED: GLUCOSE 40% GEL 15 GM TUBE PO PRN (16:45)
[2022-11-16] MEDS ORDERED: DEXTROSE 50% 50 ML SYRINGE IV PRN (16:45)
[2022-11-16 17:21] LABS: Basophils # (auto) 0.02 K/uL (0-0.2); Basophils % (auto) 0.2 %; Eosinophils # (auto) 0.02 K/uL (0-0.50); Eosinophils % (auto) 0.2 %; Hematocrit (blood only) 34.8 % (42.0-52.0); Hemoglobin 12.4 g/dl (14.0-18.0); Immature Granulocytes # (auto) 0.03 K/uL (0.01-0.20); Immature Granulocytes % (auto) 0.4 %; Lymphocytes # (auto) 1.18 K/uL (1.2-3.4); Lymphocytes % (auto) 14.3 %; Mean Corpuscular Hemoglobin 33.4 pg (25.0-34.0); Mean Corpuscular Hgb Conc 35.6 g/dL (32.0-36.0); Mean Corpuscular Volume 93.8 fL (80.0-100.0); Mean Platelet Volume 9.6 fL (9.4-12.4); Monocytes # (auto) 0.77 K/uL (0.11-0.59); Monocytes % (auto) 9.3 %; Neutrophils # (auto) 6.24 K/uL (1.40-6.50); Neutrophils % (auto) 75.6 %; Platelet Count 213 K/uL (130-400); RDW Coefficient of Variation 12.1 % (11.5-14.5); RDW Standard Deviation 41.6 fL (36.4-46.3); Red Blood Count 3.71 M/uL (4.70-6.10); White Blood Count 8.26 K/ul (4.8-10.8)
[2022-11-16 17:38] LABS: BUN Creatinine Ratio 13.1 (10-20); Calcium 9.5 mg/dl (8.6-10.3); Est GFR (African American) 94.5 ml/min; Est GFR (Non-African American) 81.5 ml/min; Magnesium 1.4 mg/dl (1.7-2.4); Potassium 3.6 mmol/L (3.5-5.1)
[2022-11-16] MEDS ORDERED: POTASSIUM CHLORIDE CRTAB 20 MEQ TABCR PO STA (17:54)
[2022-11-16] MEDS: MAGNESIUM SULFATE / D5W 1 GM/100 ML BAG IV SCH ×3 (18:04→21:36)
[2022-11-16] MEDS: INSULIN ASPART PER UNIT CHARGE SC SCH ×2 (18:05→20:16)
[2022-11-16] MEDS: ATORVASTATIN 40 MG TAB PO SCH (20:05)
[2022-11-17] MEDS: oxyCODONE/ACETAMINOPHEN 5mg/325mg TAB PO PRN ×2 (00:21→07:22)
[2022-11-17 04:52] LABS: Basophils # (auto) 0.02 K/uL (0-0.2); Basophils % (auto) 0.2 %; Eosinophils # (auto) 0.02 K/uL (0-0.50); Eosinophils % (auto) 0.2 %; Hematocrit (blood only) 35.7 % (42.0-52.0); Hemoglobin 12.4 g/dl (14.0-18.0); Immature Granulocytes # (auto) 0.05 K/uL (0.01-0.20); Immature Granulocytes % (auto) 0.5 %; Lymphocytes # (auto) 1.09 K/uL (1.2-3.4); Lymphocytes % (auto) 11.2 %; Mean Corpuscular Hemoglobin 32.8 pg (25.0-34.0); Mean Corpuscular Hgb Conc 34.7 g/dL (32.0-36.0); Mean Corpuscular Volume 94.4 fL (80.0-100.0); Mean Platelet Volume 9.6 fL (9.4-12.4); Monocytes # (auto) 0.97 K/uL (0.11-0.59); Neutrophils # (auto) 7.59 K/uL (1.40-6.50); Neutrophils % (auto) 77.9 %; Platelet Count 211 K/uL (130-400); Red Blood Count 3.78 M/uL (4.70-6.10); White Blood Count 9.74 K/ul (4.8-10.8)
[2022-11-17 05:10] LABS: Albumin Globulin Ratio 1.6 (0.9-2); BUN Creatinine Ratio 10.5 (10-20); Bilirubin,Total 0.8 mg/dl (0.2-1.0); Calcium 9.6 mg/dl (8.6-10.3); Creatinine Clr Calc Pharmacy 68.4 ml/min; Est GFR (African American) 93.6 ml/min; Est GFR (Non-African American) 80.8 ml/min; Globulin 2.5 gm/dl (2.5-4.0); Potassium 3.8 mmol/L (3.5-5.1); Total Protein 6.5 gm/dl (6.0-8.3)
[2022-11-17] MEDS: INSULIN ASPART PER UNIT CHARGE SC SCH ×2 (07:28→11:34)
[2022-11-17] MEDS: CLOPIDOGREL BISULFATE 75 MG TAB PO SCH (08:23)
[2022-11-17] MEDS: ASPIRIN 81 MG ECTAB PO SCH (08:23)
[2022-11-17] MEDS: amLODIPine BESYLATE 5 MG TAB PO SCH (08:23)
[2022-11-17] MEDS: LISINOPRIL/HCTZ 20/12.5MG 1 TAB TAB PO SCH (08:24)
[2022-11-17] MEDS: MULTIVITAMIN TAB PO SCH (08:24)
[2022-11-17] MEDS ORDERED: METOPROLOL TARTRATE 25 MG TAB PO STA (09:42)
--- NOTE | 2022-11-17 13:20 | Critical Care Progress Note ---
Date of Service November 17, 2022 Assessment & Plan (1) Hypertension: Plan: Amlodipine added to outpatient regimen yesterday. I suspect the patient has had poor control, he reported possible whitecoat hypertension: I believe he is running elevated at his baseline -Added metoprolol 12.5 mg twice daily to today's regimen. Believe it is early to increase his amlodipine If requiring aggressive control necessitating IV infusion would use nicardipine or nitroglycerin instead of nitroprusside -Patient has been off night pride infusion since this morning (2) High cholesterol: Plan: Continue statin (3) Hematoma: Plan: Improving Admission and Anticipated Discharge Date Admission Date: November 15, 2022 Subjective Patient feels better than he did yesterday. Mild soreness at incision along neckline however this is less discomfort than yesterday Physical Exam Physical Exam: General: Alert. nontoxic. Skin: Warm, dry, left neck incision clean dry intact, swelling under the left neck incision. No pulsatility: Improving Head: Atraumatic Ears, nose, mouth and throat: airway patent Cardiovascular: Normal peripheral perfusion Respiratory: no respiratory distress Gastrointestinal: Non distended Musculoskeletal: No deformity Results & Data Results & Data Vital Signs (Past 12 Hours) Vital Signs Temp Pulse Pulse Resp BP BP BP 11/17/22 12:30 74 14 128/69 11/17/22 12:00 79 17 161/80 H 11/17/22 11:31 78 17 183/95 H 11/17/22 11:15 69 14 174/85 H 11/17/22 11:00 69 14 166/86 H 11/17/22 11:51 36.6 C 82 18 177/95 H 174/91 H 11/17/22 10:48 79 25 H 170/88 H 11/17/22 10:47 80 17 176/113 H 11/17/22 10:30 70 14 134/70 11/17/22 10:15 71 15 145/80 H 11/17/22 10:01 78 18 178/88 H 11/17/22 09:45 68 14 154/77 H 11/17/22 09:30 77 17 175/83 H 11/17/22 09:40 11/17/22 09:15 74 16 161/81 H 11/17/22 09:00 73 14 153/78 H 11/17/22 08:45 79 19 153/79 H 11/17/22 08:30 84 25 H 142/84 H 11/17/22 08:15 80 15 156/84 H 11/17/22 08:00 89 26 H 170/113 H 11/17/22 07:45 86 14 158/85 H 11/17/22 07:30 91 H 19 176/97 H 11/17/22 07:25 84 12 166/81 H 11/17/22 07:14 87 18 162/91 H 11/17/22 07:00 91 H 15 182/89 H 11/17/22 06:45 85 17 165/90 H 11/17/22 06:31 190/101 H 11/17/22 06:31 81 14 11/17/22 06:30 81 16 11/17/22 06:15 83 24 11/17/22 06:00 75 16 11/17/22 06:00 148/75 H 11/17/22 05:45 75 17 11/17/22 05:45 157/77 H 11/17/22 05:30 78 17 11/17/22 05:30 173/87 H 11/17/22 05:15 81 16 11/17/22 05:15 177/89 H 11/17/22 05:00 82 18 11/17/22 05:00 162/97 H 11/17/22 04:45 77 16 11/17/22 04:45 157/78 H 11/17/22 04:30 80 16 11/17/22 04:30 167/84 H 11/17/22 04:15 98 H 18 11/17/22 04:15 161/82 H 11/17/22 04:00 76 18 11/17/22 04:00 146/70 H 11/17/22 04:00 37.0 C 11/17/22 03:45 78 17 11/17/22 03:45 140/70 11/17/22 03:30 84 16 11/17/22 03:30 150/86 H 11/17/22 03:15 81 7 L 11/17/22 03:15 148/71 H 11/17/22 03:01 157/75 H 11/17/22 03:01 85 17 11/17/22 03:00 86 21 11/17/22 02:45 78 18 11/17/22 02:45 141/67 H 11/17/22 02:30 81 14 11/17/22 02:30 142/77 H 11/17/22 02:15 84 13 11/17/22 02:15 174/77 H 11/17/22 02:00 81 15 11/17/22 02:00 149/97 H 11/17/22 01:45 80 13 11/17/22 01:45 152/73 H 11/17/22 01:30 79 18 11/17/22 01:30 141/67 H Pulse Ox O2 Del Method 11/17/22 12:30 92 Room Air 11/17/22 12:00 93 Room Air 11/17/22 11:31 93 Room Air 11/17/22 11:15 94 Room Air 11/17/22 11:00 95 Room Air 11/17/22 11:51 92 Room Air 11/17/22 10:48 95 Room Air 11/17/22 10:47 96 Room Air 11/17/22 10:30 92 Room Air 11/17/22 10:15 95 Room Air 11/17/22 10:01 93 Room Air 11/17/22 09:45 94 Room Air 11/17/22 09:30 94 Room Air 11/17/22 09:40 Room Air 11/17/22 09:15 93 Room Air 11/17/22 09:00 90 Room Air 11/17/22 08:45 92 Room Air 11/17/22 08:30 95 Room Air 11/17/22 08:15 93 Room Air 11/17/22 08:00 93 Room Air 11/17/22 07:45 91 Room Air 11/17/22 07:30 90 Room Air 11/17/22 07:25 93 Room Air 11/17/22 07:14 94 Room Air 11/17/22 07:00 92 Room Air 11/17/22 06:45 91 Room Air 11/17/22 06:31 11/17/22 06:31 87 L 11/17/22 06:30 94 11/17/22 06:15 97 11/17/22 06:00 93 11/17/22 06:00 11/17/22 05:45 92 11/17/22 05:45 11/17/22 05:30 93 11/17/22 05:30 11/17/22 05:15 11/17/22 05:15 11/17/22 05:00 95 11/17/22 05:00 11/17/22 04:45 11/17/22 04:45 11/17/22 04:30 11/17/22 04:30 11/17/22 04:15 11/17/22 04:15 11/17/22 04:00 93 11/17/22 04:00 11/17/22 04:00 11/17/22 03:45 11/17/22 03:45 11/17/22 03:30 95 11/17/22 03:30 11/17/22 03:15 11/17/22 03:15 11/17/22 03:01 11/17/22 03:01 11/17/22 03:00 11/17/22 02:45 11/17/22 02:45 11/17/22 02:30 11/17/22 02:30 11/17/22 02:15 11/17/22 02:15 11/17/22 02:00 11/17/22 02:00 11/17/22 01:45 11/17/22 01:45 11/17/22 01:30 91 11/17/22 01:30 Critical Care Results & Data Vital Signs (Past 12 Hours) Vital Signs Temp Pulse Pulse Resp BP BP BP 11/17/22 12:30 74 14 128/69 11/17/22 12:00 79 17 161/80 H 11/17/22 11:31 78 17 183/95 H 11/17/22 11:15 69 14 174/85 H 11/17/22 11:00 69 14 166/86 H 11/17/22 11:51 36.6 C 82 18 177/95 H 174/91 H 11/17/22 10:48 79 25 H 170/88 H 11/17/22 10:47 80 17 176/113 H 11/17/22 10:30 70 14 134/70 11/17/22 10:15 71 15 145/80 H 11/17/22 10:01 78 18 178/88 H 11/17/22 09:45 68 14 154/77 H 11/17/22 09:30 77 17 175/83 H 11/17/22 09:40 11/17/22 09:15 74 16 161/81 H 11/17/22 09:00 73 14 153/78 H 11/17/22 08:45 79 19 153/79 H 11/17/22 08:30 84 25 H 142/84 H 11/17/22 08:15 80 15 156/84 H 11/17/22 08:00 89 26 H 170/113 H 11/17/22 07:45 86 14 158/85 H 11/17/22 07:30 91 H 19 176/97 H 11/17/22 07:25 84 12 166/81 H 11/17/22 07:14 87 18 162/91 H 11/17/22 07:00 91 H 15 182/89 H 11/17/22 06:45 85 17 165/90 H 11/17/22 06:31 190/101 H 11/17/22 06:31 81 14 11/17/22 06:30 81 16 11/17/22 06:15 83 24 11/17/22 06:00 75 16 11/17/22 06:00 148/75 H 11/17/22 05:45 75 17 11/17/22 05:45 157/77 H 11/17/22 05:30 78 17 11/17/22 05:30 173/87 H 11/17/22 05:15 81 16 11/17/22 05:15 177/89 H 11/17/22 05:00 82 18 11/17/22 05:00 162/97 H 11/17/22 04:45 77 16 11/17/22 04:45 157/78 H 11/17/22 04:30 80 16 11/17/22 04:30 167/84 H 11/17/22 04:15 98 H 18 11/17/22 04:15 161/82 H 11/17/22 04:00 76 18 11/17/22 04:00 146/70 H 11/17/22 04:00 37.0 C 11/17/22 03:45 78 17 11/17/22 03:45 140/70 11/17/22 03:30 84 16 11/17/22 03:30 150/86 H 11/17/22 03:15 81 7 L 11/17/22 03:15 148/71 H 11/17/22 03:01 157/75 H 05/26/23 03:01 85 17 11/17/22 03:00 86 21 11/17/22 02:45 78 18 11/17/22 02:45 141/67 H 11/17/22 02:30 81 14 11/17/22 02:30 142/77 H 11/17/22 02:15 84 13 11/17/22 02:15 174/77 H 11/17/22 02:00 81 15 11/17/22 02:00 149/97 H 11/17/22 01:45 80 13 11/17/22 01:45 152/73 H 11/17/22 01:30 79 18 11/17/22 01:30 141/67 H Pulse Ox O2 Del Method 11/17/22 12:30 92 Room Air 11/17/22 12:00 93 Room Air 11/17/22 11:31 93 Room Air 11/17/22 11:15 94 Room Air 11/17/22 11:00 95 Room Air 11/17/22 11:51 92 Room Air 11/17/22 10:48 95 Room Air 11/17/22 10:47 96 Room Air 11/17/22 10:30 92 Room Air 11/17/22 10:15 95 Room Air 11/17/22 10:01 93 Room Air 11/17/22 09:45 94 Room Air 11/17/22 09:30 94 Room Air 11/17/22 09:40 Room Air 11/17/22 09:15 93 Room Air 11/17/22 09:00 90 Room Air 11/17/22 08:45 92 Room Air 11/17/22 08:30 95 Room Air 11/17/22 08:15 93 Room Air 11/17/22 08:00 93 Room Air 11/17/22 07:45 91 Room Air 11/17/22 07:30 90 Room Air 11/17/22 07:25 93 Room Air 11/17/22 07:14 94 Room Air 11/17/22 07:00 92 Room Air 11/17/22 06:45 91 Room Air 11/17/22 06:31 11/17/22 06:31 87 L 11/17/22 06:30 94 11/17/22 06:15 97 11/17/22 06:00 93 11/17/22 06:00 11/17/22 05:45 11/17/22 05:45 11/17/22 05:30 11/17/22 05:30 11/17/22 05:15 11/17/22 05:15 11/17/22 05:00 11/17/22 05:00 11/17/22 04:45 11/17/22 04:45 11/17/22 04:30 11/17/22 04:30 11/17/22 04:15 11/17/22 04:15 11/17/22 04:00 11/17/22 04:00 11/17/22 04:00 11/17/22 03:45 11/17/22 03:45 11/17/22 03:30 11/17/22 03:30 11/17/22 03:15 11/17/22 03:15 11/17/22 03:01 11/17/22 03:01 11/17/22 03:00 11/17/22 02:45 11/17/22 02:45 11/17/22 02:30 11/17/22 02:30 11/17/22 02:15 11/17/22 02:15 11/17/22 02:00 11/17/22 02:00 11/17/22 01:45 11/17/22 01:45 11/17/22 01:30 11/17/22 01:30 Lab & Micro Results (Past 24 Hours) RBC 3.78 M/uL (4.70-6.10) L 11/17/22 WBC 9.74 K/ul (4.8-10.8) 11/17/22 Hgb 12.4 g/dl (14.0-18.0) L 11/17/22 Hct 35.7 % (42.0-52.0) L 11/17/22 MCV 94.4 fL (80.0-100.0) 11/17/22 MCH 32.8 pg (25.0-34.0) 11/17/22 MCHC 34.7 g/dL (32.0-36.0) 11/17/22 RDW Standard Deviation 42.0 fL (36.4-46.3) 11/17/22 RDW Coefficient of Variation 12.0 % (11.5-14.5) 11/17/22 Plt Count 211 K/uL (130-400) 11/17/22 MPV 9.6 fL (9.4-12.4) 11/17/22 Neutrophils (%) (Auto) 77.9 % 11/17/22 Lymphocytes (%) (Auto) 11.2 % 11/17/22 Monocytes # (Auto) 0.97 K/uL (0.11-0.59) H 11/17/22 Eosinophils # (Auto) 0.02 K/uL (0-0.50) 11/17/22 Immature Granulocyte % (Auto) 0.5 % 11/17/22 Neutrophils # (Auto) 7.59 K/uL (1.40-6.50) H 11/17/22 Lymphocytes # (Auto) 1.09 K/uL (1.2-3.4) L 11/17/22 Monocytes # (Auto) 0.97 K/uL (0.11-0.59) H 11/17/22 Eosinophils # (Auto) 0.02 K/uL (0-0.50) 11/17/22 Basophils # (Auto) 0.02 K/uL (0-0.2) 11/17/22 Immature Granulocyte # (Auto) 0.05 K/uL (0.01-0.20) 3 Na 137 mmol/L (136-145) 11/17/22 K 3.8 mmol/L (3.5-5.1) 11/17/22 Cl 102 mmol/L (98-107) 11/17/22 CO2 28 mmol/L (21-32) 11/17/22 Anion Gap 7 (3-11) 11/17/22 BUN 9 mg/dl (6-23) 11/17/22 Creatinine 0.86 mg/dl (0.6-1.4) 11/17/22 Estimated GFR ( Amer) 93.6 ml/min 11/17/22 Estimated GFR (Non-Af Amer) 80.8 ml/min 11/17/22 BUN/Creatinine Ratio 10.5 (10-20) 11/17/22 Glu 153 mg/dl (70-99(Fasting)) H 11/17/22 Ca 9.6 mg/dl (8.6-10.3) 11/17/22 Total Bilirubin 0.8 mg/dl (0.2-1.0) 11/17/22 AST 22 U/L (13-39) 11/17/22 ALT 11 U/L (7-52) 11/17/22 Alkaline Phosphatase 47 U/L (34-104) 11/17/22 TP 6.5 gm/dl (6.0-8.3) 11/17/22 Albumin 4.0 gm/dl (3.4-5.0) 11/17/22 Globulin 2.5 gm/dl (2.5-4.0) 11/17/22 Albumin/Globulin Ratio 1.6 (0.9-2) 11/17/22 Mg 2.0 mg/dl (1.7-2.4) 11/17/22 04:36 Calcium Level 9.6 mg/dl (8.6-10.3) 11/17/22 04:36 I & O Totals 24 Hours 11/16/22 11/17/22 11/18/22 06:59 06:59 06:59 Intake Total 3181.568 / 3185.378 2034.554 / 2034.554 40.455 / 40.455 Output Total 705 / 705 451 / 451 525 / 525 Balance 2476.568 / 2480.378 1583.554 / 1583.554 -484.545 / -484.545 Cumulative 10/25/22 09:23 thru 11/17/22 10:48 Intake Total 5256.577 Output Total 1681 Balance 3575.577 RT Ventilator Mngmt (Last Documented) Ventilator Ordered Settings Respiratory Rate 14 11/17/22 12:30 Ventilator - PT Measurements Respiratory Rate 14 Coding Level of Care Code 50928 SUB INP/OBS CARE 3/50MIN Diagnoses Hypertension I10 High cholesterol E78.00 Hematoma T14.8XXA
--- NOTE | 2022-11-17 15:11 | Surgery Progress Note ---
Date of Service November 17, 2022 Assessment & Plan (1) Internal carotid artery stent present: Plan: This gentleman is postoperative day 2 from a TCAR. He is doing well without any neurological deficits. (2) Hypertension: Plan: Off nipride. BP much better. Will d\c today. Patient will monitor his BP at home and call his PCP if it runs above 170 Admission and Anticipated Discharge Date Admission Date: November 15, 2022 Subjective No complaints. Physical Exam Constitutional: WD/WN, vitals as above Cardiovascular: Rate/Rhythm: regular rate and regular rhythm Extremities: normal capillary refill Gastrointestinal (Abdomen): Inspection/Auscultation: abdomen normal to inspection Skin: + incision (Healing well) Neurologic: CN's II-XI intact bilaterally and moves all extremities Psychiatric: Orientation: alert and oriented x 3 Results & Data Vital Signs (Past 12 Hours) Vital Signs Temp Pulse Pulse Resp BP BP BP 11/17/22 14:30 75 22 178/83 H 11/17/22 14:00 77 24 147/80 H 11/17/22 13:30 65 15 120/64 11/17/22 13:00 70 16 126/62 11/17/22 12:30 74 14 128/69 11/17/22 12:00 79 17 161/80 H 11/17/22 11:31 78 17 183/95 H 11/17/22 11:15 69 14 174/85 H 11/17/22 11:00 69 14 166/86 H 11/17/22 11:51 36.6 C 82 18 177/95 H 174/91 H 11/17/22 10:48 79 25 H 170/88 H 11/17/22 10:47 80 17 176/113 H 11/17/22 10:30 70 14 134/70 11/17/22 10:15 71 15 145/80 H 11/17/22 10:01 78 18 178/88 H 11/17/22 09:45 68 14 154/77 H 11/17/22 09:30 77 17 175/83 H 11/17/22 09:40 11/17/22 09:15 74 16 161/81 H 11/17/22 09:00 73 14 153/78 H 11/17/22 08:45 79 19 153/79 H 11/17/22 08:30 84 25 H 142/84 H 11/17/22 08:15 80 15 156/84 H 11/17/22 08:00 89 26 H 170/113 H 11/17/22 07:45 86 14 158/85 H 11/17/22 07:30 91 H 19 176/97 H 11/17/22 07:25 84 12 166/81 H 11/17/22 07:14 87 18 162/91 H 11/17/22 07:00 91 H 15 182/89 H 11/17/22 06:45 85 17 165/90 H 11/17/22 06:31 190/101 H 11/17/22 06:31 81 14 11/17/22 06:30 81 16 11/17/22 06:15 83 24 11/17/22 06:00 75 16 11/17/22 06:00 148/75 H 11/17/22 05:45 75 17 11/17/22 05:45 157/77 H 11/17/22 05:30 78 17 11/17/22 05:30 173/87 H 11/17/22 05:15 81 16 11/17/22 05:15 177/89 H 11/17/22 05:00 82 18 11/17/22 05:00 162/97 H 11/17/22 04:45 77 16 11/17/22 04:45 157/78 H 11/17/22 04:30 80 16 11/17/22 04:30 167/84 H 11/17/22 04:15 98 H 18 11/17/22 04:15 161/82 H 11/17/22 04:00 76 18 11/17/22 04:00 146/70 H 11/17/22 04:00 37.0 C 11/17/22 03:45 78 17 11/17/22 03:45 140/70 11/17/22 03:30 84 16 11/17/22 03:30 150/86 H 11/17/22 03:15 81 7 L 11/17/22 03:15 148/71 H Pulse Ox O2 Del Method 11/17/22 14:30 90 Room Air 11/17/22 14:00 96 Room Air 11/17/22 13:30 93 Room Air 11/17/22 13:00 91 Room Air 11/17/22 12:30 92 Room Air 11/17/22 12:00 93 Room Air 11/17/22 11:31 93 Room Air 11/17/22 11:15 94 Room Air 11/17/22 11:00 95 Room Air 11/17/22 11:51 92 Room Air 11/17/22 10:48 95 Room Air 11/17/22 10:47 96 Room Air 11/17/22 10:30 92 Room Air 11/17/22 10:15 95 Room Air 11/17/22 10:01 93 Room Air 11/17/22 09:45 94 Room Air 11/17/22 09:30 94 Room Air 11/17/22 09:40 Room Air 11/17/22 09:15 93 Room Air 11/17/22 09:00 90 Room Air 11/17/22 08:45 92 Room Air 11/17/22 08:30 95 Room Air 11/17/22 08:15 93 Room Air 11/17/22 08:00 93 Room Air 11/17/22 07:45 91 Room Air 11/17/22 07:30 90 Room Air 11/17/22 07:25 93 Room Air 11/17/22 07:14 94 Room Air 11/17/22 07:00 92 Room Air 11/17/22 06:45 91 Room Air 11/17/22 06:31 11/17/22 06:31 87 L 11/17/22 06:30 94 11/17/22 06:15 97 11/17/22 06:00 93 11/17/22 06:00 11/17/22 05:45 92 11/17/22 05:45 11/17/22 05:30 93 11/17/22 05:30 11/17/22 05:15 92 11/17/22 05:15 11/17/22 05:00 95 11/17/22 05:00 11/17/22 04:45 92 11/17/22 04:45 11/17/22 04:30 92 11/17/22 04:30 11/17/22 04:15 92 11/17/22 04:15 11/17/22 04:00 93 11/17/22 04:00 11/17/22 04:00 11/17/22 03:45 92 11/17/22 03:45 11/17/22 03:30 95 11/17/22 03:30 11/17/22 03:15 92 11/17/22 03:15
--- NOTE | 2022-11-17 15:40 | Hospitalist Progress Note ---
Date of Service November 17, 2022 Assessment & Plan (1) Internal carotid artery stent present: Plan: POD #2 Status post left TCAR by Dr Cuba Cont all postoperative surgical management as per vascular surgery Continue aspirin, Plavix, atorvastatin BP control improving Defer pain management to vascular surgery Neuro examination wnl today (2) Hypertension: Plan: Patient with long-standing uncontrolled HTN Patient reported to me today that he will range 130s to 160s or higher at home He was high at an [facility] - 02/[facility], and SBP was in the 180s at that time He could have a component of white coat HTN Nipride drip was turned off early this am He is now on combination of lisinopril 20mg, HCTZ 12.5mg, amlodipine 5mg, and metoprolol 12.5mg The metoprolol was started this am BPs through the day today have been much better with some systolics in the 130s At discharge would continue the lisinopril, HCTZ, and amlodipine Defer on metoprolol for now He has a BP cuff at home - recommend checking BPs twice daily at home, record the numbers, and show these to his PCP Advise f/u in 5 days with PCP for BP check (3) Type 2 diabetes mellitus: Plan: Hemoglobin A1c well controlled at 6.9% in 10/2022 Resume metformin 1gm BID Creatinine today is stable (4) Snoring: Plan: Needs outpatient sleep study If he has SYLVIE this could be contributing to uncontrolled high blood pressure (5) High cholesterol: Plan: Continue atorvastatin 40 mg daily (6) Prostate cancer: Plan: Noted f/u with urology as outpatient Plan I discussed the pt's care with Dr Cuba from vascular surgery in detail Dr Cuba plans to d/c the patient to home today The amlodipine has been sent to the pt's pharmacy I added additional instructions to his d/c paperwork advising BP checks at home and f/u with PCP within 5 days Medically patient is stable with acceptable labs, normal physical exam, and improved BPs off of IV anti-hypertensives Admission and Anticipated Discharge Date Admission Date: November 15, 2022 Subjective patient w/o complaints he feels well he slept well last pm eating normally had a bowel movement today denies pain in any location denies nausea, emesis +flatus denies chest pain, dyspnea, or FRAZIER denies any focal motor weakness nipride drip shut off at shift change this am Review of Systems Review of Systems: gen - feels well neuro - mild headache - resolved w/ tylenol cv - no chest pain, no orthopnea pulm - no dyspnea, no cough GI - no pain - voiding fine Physical Exam Physical Exam: gen - NAD, looks well mouth - MMM neck - no JVD heart - RRR, s1 s2, no murmur lungs - CTA b/l abd - soft NT ND BS+ ext - no edema, pulses 2+ b/l skin - incision base of left neck - mild ecchymoses, mild erythema, mild swe lling only psych - a/o x 3 neuro - strength 5/5 x 4 extremities Results & Data Results & Data Vital Signs (Past 12 Hours) Vital Signs Temp Pulse Pulse Resp BP BP BP 11/17/22 14:30 75 22 178/83 H 11/17/22 14:00 77 24 147/80 H 11/17/22 13:30 65 15 120/64 11/17/22 13:00 70 16 126/62 11/17/22 12:30 74 14 128/69 11/17/22 12:00 79 17 161/80 H 11/17/22 11:31 78 17 183/95 H 11/17/22 11:15 69 14 174/85 H 11/17/22 11:00 69 14 166/86 H 11/17/22 11:51 36.6 C 82 18 177/95 H 174/91 H 11/17/22 10:48 79 25 H 170/88 H 11/17/22 10:47 80 17 176/113 H 11/17/22 10:30 70 14 134/70 11/17/22 10:15 71 15 145/80 H 11/17/22 10:01 78 18 178/88 H 11/17/22 09:45 68 14 154/77 H 11/17/22 09:30 77 17 175/83 H 11/17/22 09:40 11/17/22 09:15 74 16 161/81 H 11/17/22 09:00 73 14 153/78 H 11/17/22 08:45 79 19 153/79 H 11/17/22 08:30 84 25 H 142/84 H 11/17/22 08:15 80 15 156/84 H 11/17/22 08:00 89 26 H 170/113 H 11/17/22 07:45 86 14 158/85 H 11/17/22 07:30 91 H 19 176/97 H 11/17/22 07:25 84 12 166/81 H 11/17/22 07:14 87 18 162/91 H 11/17/22 07:00 91 H 15 182/89 H 11/17/22 06:45 85 17 165/90 H 11/17/22 06:31 190/101 H 11/17/22 06:31 81 14 11/17/22 06:30 81 16 11/17/22 06:15 83 24 11/17/22 06:00 75 16 11/17/22 06:00 148/75 H 11/17/22 05:45 75 17 11/17/22 05:45 157/77 H 11/17/22 05:30 78 17 11/17/22 05:30 173/87 H 11/17/22 05:15 81 16 11/17/22 05:15 177/89 H 11/17/22 05:00 82 18 11/17/22 05:00 162/97 H 11/17/22 04:45 77 16 11/17/22 04:45 157/78 H 11/17/22 04:30 80 16 11/17/22 04:30 167/84 H 11/17/22 04:15 98 H 18 11/17/22 04:15 161/82 H 11/17/22 04:00 76 18 11/17/22 04:00 146/70 H 11/17/22 04:00 37.0 C 11/17/22 03:45 78 17 11/17/22 03:45 140/70 Pulse Ox O2 Del Method 11/17/22 14:30 90 Room Air 11/17/22 14:00 96 Room Air 11/17/22 13:30 93 Room Air 11/17/22 13:00 91 Room Air 11/17/22 12:30 92 Room Air 11/17/22 12:00 93 Room Air 11/17/22 11:31 93 Room Air 11/17/22 11:15 94 Room Air 11/17/22 11:00 95 Room Air 11/17/22 11:51 92 Room Air 11/17/22 10:48 95 Room Air 11/17/22 10:47 96 Room Air 11/17/22 10:30 92 Room Air 11/17/22 10:15 95 Room Air 11/17/22 10:01 93 Room Air 11/17/22 09:45 94 Room Air 11/17/22 09:30 94 Room Air 11/17/22 09:40 Room Air 11/17/22 09:15 93 Room Air 11/17/22 09:00 90 Room Air 11/17/22 08:45 92 Room Air 11/17/22 08:30 95 Room Air 11/17/22 08:15 93 Room Air 11/17/22 08:00 93 Room Air 11/17/22 07:45 91 Room Air 11/17/22 07:30 90 Room Air 11/17/22 07:25 93 Room Air 11/17/22 07:14 94 Room Air 11/17/22 07:00 92 Room Air 11/17/22 06:45 91 Room Air 11/17/22 06:31 11/17/22 06:31 87 L 11/17/22 06:30 94 11/17/22 06:15 97 11/17/22 06:00 93 11/17/22 06:00 11/17/22 05:45 92 11/17/22 05:45 11/17/22 05:30 93 11/17/22 05:30 11/17/22 05:15 92 11/17/22 05:15 11/17/22 05:00 95 11/17/22 05:00 11/17/22 04:45 92 11/17/22 04:45 11/17/22 04:30 92 11/17/22 04:30 11/17/22 04:15 92 11/17/22 04:15 11/17/22 04:00 93 11/17/22 04:00 11/17/22 04:00 11/17/22 03:45 92 11/17/22 03:45 Laboratory Results Laboratory Results - last 24 hr 11/16/22 11/17/22 11/17/22 20:12 04:36 04:36 WBC 9.74 RBC 3.78 L Hgb 12.4 L Hct 35.7 L MCV 94.4 MCH 32.8 MCHC 34.7 RDW Std Deviation 42.0 RDW Coeff of Lindy 12.0 Plt Count 211 MPV 9.6 Immature Gran % (Auto) 0.5 Neut % (Auto) 77.9 Lymph % (Auto) 11.2 [place] % (Auto) 10.0 Eos % (Auto) 0.2 Baso % (Auto) 0.2 Neut # (Auto) 7.59 H Lymph # (Auto) 1.09 L [place] # (Auto) 0.97 H Eos # (Auto) 0.02 Baso # (Auto) 0.02 Immature Gran # (Auto) 0.05 Sodium 137 Potassium 3.8 Chloride 102 Carbon Dioxide 28 Anion Gap 7 BUN 9 Creatinine 0.86 Est Cr Clr Drug Dosing 68.4 Est GFR ( Amer) 93.6 Est GFR (Non-Af Amer) 80.8 BUN/Creatinine Ratio 10.5 Glucose 153 H POC Glucose 186 H Calcium 9.6 Magnesium 2.0 Total Bilirubin 0.8 AST 22 ALT 11 Alkaline Phosphatase 47 Total Protein 6.5 Albumin 4.0 Globulin 2.5 Albumin/Globulin Ratio 1.6 11/17/22 11/17/22 11/17/22 07:11 11:08 16:00 WBC RBC Hgb Hct MCV MCH MCHC RDW Std Deviation RDW Coeff of Lindy Plt Count MPV Immature Gran % (Auto) Neut % (Auto) Lymph % (Auto) [place] % (Auto) Eos % (Auto) Baso % (Auto) Neut # (Auto) Lymph # (Auto) [place] # (Auto) Eos # (Auto) Baso # (Auto) Immature Gran # (Auto) Sodium Potassium Chloride Carbon Dioxide Anion Gap BUN Creatinine Est Cr Clr Drug Dosing Est GFR ( Amer) Est GFR (Non-Af Amer) BUN/Creatinine Ratio Glucose POC Glucose 157 H 144 H 166 H Calcium Magnesium Total Bilirubin AST ALT Alkaline Phosphatase Total Protein Albumin Globulin Albumin/Globulin Ratio PG Care Time/CCT Total # of Minutes Spent Total Time Spent with Patient: Total time spent is greater than 50% in coordination of care (as documented) at patient's floor/unit and/or counseling patient: Coding Level of Care Code 83680 SUB INP/OBS CARE 1/25MIN Diagnoses Internal carotid artery stent present Z95.828 Hypertension I10 Type 2 diabetes mellitus E11.9 Snoring R06.83 High cholesterol E78.00 Prostate cancer C61
[2022-11-17] MEDS ORDERED: METOPROLOL TARTRATE 25 MG TAB PO SCH (21:00)
--- NOTE | 2022-11-24 09:01 | Discharge Summary ---
Date of Service November 24, 2022 Admission HPI Per Admitting Provider Chief Complaint rm#[id number] here for consult STEFFEN, on plavix, aspirin, and statin Reason for Consultation Severe left internal carotid artery stenosis History of Present Illness I the pleasure of seeing Willy today for evaluation of his carotid disease. As you know he is an 81-year-old gentleman who was seen by his carbon dioxide operator. There was concern about decreased perfusion of the left retina. Since then he underwent a CT angiogram which showed a severe stenosis of the left internal carotid artery. The right side showed a 50% narrowing. He is totally asymptomatic from cerebrovascular complaints. He is hypertensive and does have diabetes. He smokes cigars in the past and quit in 1983. Review of Systems 10 systems were reviewed. They were negative except for his HPI. Physical Exam Vitals & Measurements HR: 82 (Monitored) BP: 184/80 SpO2: 98% Input and Output - Last 24 hours (Last 8 hours) No I/O Data Found: On exam he is awake alert and oriented x3. He is no apparent distress. His blood pressure is 184/84 on the left and 184/80 on the right. His radials and carotids are +2 bilaterally. Lungs are clear. Heart had a regular rate and rhythm. Abdominal exam is benign. Lower extremity had normal pulses throughout. Neurologic exam is intact motor and sensory function. Assessment/Plan Carotid stenosis, bilateral The CT angiogram showed severe stenosis of the left internal carotid artery. At this point he is asymptomatic from this lesion. We did recommend intervention for the stenosis. We went over the risks options and benefits of the carotid endarterectomy versus TCAR. He elected to go ahead with the TCAR procedure. He understood the risks options and benefits of both procedures. I did inform him that being that the narrowing is severe if at the time of surgery it was found to be totally occluded no intervention will be performed. He is on Plavix already as well as the aspirin and statin. This will be scheduled in the near future. Thank you very much for letting us participate in the care of this patient. 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 Carotid stenosis, bilateral Changing skin lesion Elevated cholesterol History of skin cancer Hyperglycemia Hypertension Inflamed seborrheic keratosis Lipoma Onychomycosis Scar Seborrheic keratoses Senile hyperkeratosis Skin lesion Tinea pedis Historical Neoplasm of uncertain behavior of skin Procedure/Surgical History Mohs micrographic surgery (07/05/2021) Shave biopsy and cauterization of skin (05/30/2021) Shave biopsy (12/13/2020) Mohs' micrographic surgery (09/15/2020) Shave biopsy and cauterization of skin (08/25/2020) Shave biopsy of skin (11/03/2015) Shave biopsy (03/10/2015) Electrodesiccation with curettage (04/01/2014) Shave biopsy and cauterization of skin (03/12/2014) Destruction using electrical energy (03/12/2013) Shave biopsy Mohs' surgery Hernia repair Excision Dental Medications Home ascorbic acid(Vitamin C 500 mg oral tablet), 500 mg= 1 tab, PO, Daily aspirin(aspirin 81 mg oral tablet), 81 mg= 1 tab, PO, Daily atorvastatin(atorvastatin 40 mg oral tablet), 40 mg= 1 tab, PO, Daily cholecalciferol(Vitamin D3), 1 tab, PO, Daily ciclopirox topical(Penlac Nail Lacquer 8% topical solution), 1 appl, topical, Daily, 1 refills clopidogrel(clopidogrel 75 mg oral tablet), 75 mg= 1 tab, PO, Daily econazole topical(econazole 1% topical cream), 1 appl, topical, bid, 2 refills hydroCHLOROthiazide-lisinopril(hydroCHLOROthiazide-lisinopril 12.5 mg-20 mg oral tablet), 1 tab, PO, Daily metFORMIN(metformin 500 mg oral tablet), 1000 mg= 2 tab, PO, bid multivitamin , 1 tab, PO, Daily Allergies NKA Social History Smoking Status Never smoked cigarettes Immunizations Vaccine Date Status influenza virus vaccine, inactivated 03/12/2014 Given Signature Line Electronic Signature on File Cuate Cuba MD Author Signature Dt/Tm: 10/23/2022 04:58 PM Senior Bi Developer Garret Marshall [facility]-[address], [address] [place] [address] EJS Result Type: .Outpt Ltr Date of Service: October 23, 2022 16:52 EDT Authorization Status: Final Subject: Consult Note Author or Import Date: MD Cuba Eugene J on October 23, 2022 16:58 EDT Verified By: MD Cuba Eugene J on October 23, 2022 16:58 EDT Encounter info: [id number], CHERYL RUIZ, Clinic, 10/23/2022 - 10/23/2022 Admission Exam Per Admitting Provider On exam he is awake alert and oriented x3. He is no apparent distress. His blood pressure is 184/84 on the left and 184/80 on the right. His radials and carotids are +2 bilaterally. Lungs are clear. Heart had a regular rate and rhythm. Abdominal exam is benign. Lower extremity had normal pulses throughout. Neurologic exam is intact motor and sensory function. Principal Diagnosis 1. s/p L TCAR 2. HTN Discharge Exam Constitutional WD/WN, vitals as above Neck trachea midline Cardiovascular Rate/Rhythm: regular rate and regular rhythm Extremities: normal capillary refill Gastrointestinal (Abdomen) Inspection/Auscultation: abdomen normal to inspection Skin + incision (Healing well) Neurologic CN's II-XI intact bilaterally and moves all extremities Psychiatric Orientation: alert and oriented x 3 Discharge Data Allergies Allergy/AdvReac Type Severity Reaction Status Date / Time No Known Allergies Allergy Verified 11/15/22 09:14 Consultations 11/15/22 13:40 Consult Aquatic Biologist Routine 11/16/22 14:09 Consult Hospitalist Routine Procedures Performed Operation Date: 11/15/22 10:50 Actual Procedures p Left Transcarotid Artery Revascularization of the Right Common Femoral Artery(Left) - Cuate Cuba MD Ordered Studies 11/15/22 07:12 EV angio carotid cerv LT Routine Hospital Course (1) Internal carotid artery stent present: This gentleman is postoperative day 2 from a TCAR. He is doing well without any neurological deficits. (2) Hypertension: Off nipride. BP much better. Will d\c today. Patient will monitor his BP at home and call his PCP if it runs above 170 Total Time Total Time Spent Total Time Spent (In Minutes): 0 Discharge Plan Discharge Items Patient Disposition: Home - Self-Care Reason For Visit: Left Internal Carotid Artery Stenosis Discharge Diagnosis: Left internal carotid artery stenosis Activity: Per Instructions section Non-emergency contact: Surgeon Call non-emergency contact if: you have any medication questions, your symptoms worsen, your pain is not controlled, your pain is worsening, your pain is unusual for you, your pain is concerning for you, you have a fever, your temperature is above 101, your wound has increased redness, your wound has increased drainage and your wound pain has increased Follow-up/Referrals: Ozzie Rosenthal [Primary Care Provider] - (5 days for blood pressure check. Dr. Rosenthal's office closed today. Please call Dr. Rosenthal's office on November 21, 2022 for a BP check on 11/22/22) Diet: Carb Consistent or DM2 and Heart Healthy Addtl Attending Provider Instructions: SPECIAL CARE INSTRUCTIONS: Medications: * Continue to take Aspirin, plavix, and statin non stop for one month post procedure as directed. If you need to stop any of these meds after one month, please notify my office. Incision Care: * You may shower, but do not rub incision. You may let the warm soapy water run over it. Be sure to dry the incision well after bathing. * Do not shave directly over the incision until it is healed. * DO NOT IMMERSE THE INCISION IN A TUB/POOL/etc. UNTIL HEALED. Restrictions: * Do not drive for at least one week or if you are still taking any narcotic pain medication. * Do not lift anything heavier than a gallon of milk for one week after going home. Possible Complications: * Numbness - It is normal to have some numbness around the incision. Numbness can extend beyond the incision to areas of the neck, ear and face. The numbness is due to bruising of nerves during the surgery and will gradually improve over a period of months. * Hoarseness/Difficulty Speaking and Swallowing - The bruising of nerves in the neck can also cause a hoarse voice, difficulty speaking or swallowing. This may improve over time, HOWEVER, if it continues for more than a few days please contact our office ([phone]). * Excessive Swelling - There will be some swelling immediately after surgery which usually resolves within one week. If you notice that the swelling is getting worse, notify your surgeon ([phone]). * Drainage/Bleeding - If there is any drainage or bleeding, it should be a very small amount (less than a teaspoon per day). If you have excessive bleeding or drainage from the incision, call your surgeon ([phone]) right away. ACTIVATION OF EMERGENCY MEDICAL SYSTEM: Call 911, immediately, if you experience any of the following: Warning Signs and Symptoms of Stroke: * Sudden numbness or weakness of the face, arm or leg, especially on one side of the body * Sudden confusion, trouble speaking or understanding * Sudden trouble seeing in one or both eyes * Sudden trouble walking, dizziness, loss of balance or coordination * Sudden severe headache with no cause Do not delay calling 911 if you experience any warning signs or symptoms of a stroke. Delay in seeking medical attention may affect what treatments can be given to you. Risk Factors for Stroke: You can reduce your chances of stroke by working with your medical provider to adopt a healthy lifestyle. Some specific ways to lower your chance of stroke are: * If you are a smoker, now is the time to stop smoking cigarettes * If you are diabetic, improve the control of your blood sugars * Avoid excessive amounts of alcohol * Control high blood pressure * Lose weight if you are overweight * Be sure to lead an active lifestyle * Eat a healthy diet low in salt, cholesterol and fat You should know about other risk factors for stroke that you are unable to control. These include: * Age 55 years or older * Male gender * Certain racial groups: , or / * Family History of Stroke, Mini stroke or Heart Attack * Sickle Cell Disease You will be receiving a call from the Vascular Surgery Nurse after you are discharged. FOLLOW UP VISIT: It is important for you to keep your follow up appointments with your medical provider. Keep any scheduled doctor appointments. Call [phone] to schedule a follow up appointment if one not already scheduled. Addtl Dredge Deckhand Provider Instructions: From the [facility] Hospitalist team -- 1. Please start amlodipine 5mg once daily for high blood pressure, first dose AM of 11/18/22 * common side effects include constipation and, on occasion, swelling of feet 2. Continue your lisinopril-HCTZ blood pressure medication as previous 3. Check your blood pressure at least twice daily and write these numbers down in a notebook; show these numbers to your family doctor at time of follow-up 4. Be sure you have been comfortably sitting in a chair or on the couch for about 20 minutes before checking your blood pressure 5. See Dr Rosenthal on Sunday or Sunday of this coming week to have your blood pressure rechecked and medications adjusted, if needed 6. Continue to check your blood sugars daily and also write these numbers down; show these blood sugar numbers to your family doctor as well Pending Studies at Discharge: No Stand-Alone Forms: My [facility], Smoking Cessation Medications and DC Order Prescriptions: New oxycodone-acetaminophen [Percocet] 5-325 mg tablet 1 tab PO Q6H PRN (Reason: pain) Qty: 10 0RF amlodipine [Norvasc] 5 mg Tablet 5 mg PO QAM Qty: 30 0RF Continued atorvastatin 40 mg tablet 40 mg PO QPM metformin 500 mg tablet extended release 24hr 1,000 mg PO BID multivitamin Tablet 1 tab PO QAM lisinopril-hydrochlorothiazide 20-12.5 mg tablet 1 tab PO QAM clopidogrel [Plavix] 75 mg Tablet 75 mg PO QAM aspirin 81 mg Tablet 81 mg PO QAM loratadine [Claritin] 10 mg Tablet 10 mg PO DAILY PRN (Reason: Allergy Symptoms) Discharge Orders: Discharge Order (Routine); Ordered 11/17/22 Ordered By: Cuate Yee/Other Patient Handouts: High Blood Sugar (Hyperglycemia), Hypoglycemia (Low Blood Sugar), Managing Type 2 Diabetes Admission Data Admit Date/Time: 11/15/22 10:32 Attending Provider: Cuate Cuba Admit Provider: Cuate Cuba Primary Care Provider: Ozzie Rosenthal Other Providers: Rell Perez ; Anibal James ; Gage Mark ; Lupis Lang ; Ozzie Parra ; Dennys Howell ; Patrick Messina ; Tano Bee ; Ward Felix Rick D ; Laura Rodriguez ; Sam Dumont ; Diego Howell ; Rishi Townsend ; Lawrence Young ; Yuliet Bell ; Ivon Guido ; David Cole ; Brigitte Barr ; Carole Coronado ; Blake Givens ; Tano Dexter ; Barrett Koo ; Chacha Corral ; Laura Chow ; Zaira Campbell ; Ryann Boykin ; Bill Resendiz ; Sam Del Valle ; Iman Pollard ; Scott Hyde ; Eddy Rios ; Rachna Montero ; Thomas Dawn ; Neftali Deleon ; Sis Faye ; Lucas Elizabeth ; Gayla Carlisle ; Janey Price ; Dagoberto Fernandez ; Kate King ; Patti Roe ; Diego Solo ; Rishi Simeon ; Boaz Oh Other Interventions: Discharge Summary Assessment (RN) Last Done: 11/17/22 16:02
== END 2022-11-17 16:49 | disposition home or self-care (01) | DRG 36 ==
LOC: ASU 08:51 → 1E 10:32
PROC: EV.TCAR (2022-11-15 10:50)